=== PATIENT | female | born 1970 | race African-American/Black ===

== ENCOUNTER 2021-01-01 14:54 | Emergency (ER) | payer SELFPAY ==
[~2021-01-01] VITALS: Ht 160 cm; Wt 65.8 kg
[2021-01-01] MEDS ORDERED: CLINDAMYCIN HC300 MG PO (15:59)
[2021-01-01] MEDS ORDERED: Motrin,Rufen800 MG PO (15:59)
== END 2021-01-01 16:20 | disposition home or self-care (01) ==
LOC: ED 14:54
DX: K04.7 Periapical abscess without sinus (principal); Z88.0 Allergy status to penicillin